=== PATIENT | female | born 1960 | race African-American/Black ===

== ENCOUNTER 2021-01-08 13:51 | Emergency (ER) | payer OTHER ==
[~2021-01-08] VITALS: Ht 162.6 cm; Wt 61.2 kg
[2021-01-08] MEDS ORDERED: FLEXERIL PO (15:13)
[2021-01-08 15:21] VITALS: BP 173/91
== END 2021-01-08 15:25 | disposition home or self-care (01) ==
LOC: ER 13:51
DX: M54.2 Cervicalgia (principal); S16.1XXA Strain of muscle, fascia and tendon at neck level, initial encounter; V49.49XA Driver injured in collision with other motor vehicles in traffic accident, initial encounter; Y93.89 Activity, other specified; Y92.89 Other specified places as the place of occurrence of the external cause; Y99.8 Other external cause status